=== PATIENT | male | born 1990 | race African-American/Black ===

== ENCOUNTER 2024-02-09 16:05 | Emergency (ER) | payer OTHER, SELFPAY ==
[2024-02-09 16:09] VITALS: BP 130/100; PULSE 158; TEMP 37.1; O2SAT 98; BMI 21.3
[2024-02-09 16:15] VITALS: BP 130/90
--- NOTE | 2024-02-09 16:21 | ED_ITS ---
HPI - Medical Clearance General Chief complaint: Medical Clearance Stated complaint: [facility]-MEDICAL CLEARANCE Time Seen by Provider: 02/09/24 16:07 Source: patient Mode of arrival: walk-in Limitations: no limitations History of Present Illness HPI Narrative: 33-year-old male presents for medical clearance for alcohol rehab. He was taking an Uber from [place] to a nearby alcohol treatment center and on the way that they stopped for gas and he bought a beer and drank it in the car. When he arrived at the alcohol treatment center he was found to have an alcohol level of 0.34. He does not seem to have any physical complaints. He smokes marijuana but denies any other drug use. Related Information Home Medications ?Medication ?Instructions ?Recorded ?Confirmed quetiapine 100 mg tablet (Seroquel) 100 mg PO DAILY 02/09/24 02/09/24 trazodone 100 mg tablet 100 mg PO DAILY 02/09/24 02/09/24 Allergies Allergy/AdvReac Type Severity Reaction Status Date / Time No Known Drug Allergies Allergy Verified 02/09/24 16:13 Review of Systems ROS Narrative A ten point review of systems is negative except as noted above. Exam Narrative Exam Narrative: Nurses note and vital signs reviewed and patient is not hypoxic. General: The patient appears well and in no apparent distress. Patient is resting comfortably on cart. Skin: Warm, dry, no pallor noted. There is no rash noted. Head: Normocephalic, atraumatic Eye: Normal conjunctiva, no drainage Ears, Nose, Mouth, and Throat: oral mucosa is moist. Nares patent. Cardiovascular: Regular Rate and Rhythm Respiratory: Patient is in no distress, no accessory muscle use, lungs are clear to auscultation, no wheezing, rales or rhonchi Back: non-tender GI: Soft and nontender Musculoskeletal: The patient has no evidence of calf tenderness, no pitting edema, symmetrical pulses noted bilaterally Neurological: A&O, normal speech Psychiatric: Cooperative Constitutional Vital Signs, click to edit/add: Last Vital Signs Temp 98.8 F 02/09/24 16:09 Pulse 80 02/09/24 17:12 Resp 18 02/09/24 16:09 BP 130/90 02/09/24 16:22 Pulse Ox 98 02/09/24 17:12 O2 Del Method Room Air 02/09/24 16:09 Course Vital Signs Vital signs: Vital Signs Temperature 98.8 F 02/09/24 16:09 Pulse Rate 158 H 02/09/24 16:09 Respiratory Rate 18 02/09/24 16:09 Blood Pressure 130/100 H 02/09/24 16:09 Pulse Oximetry 98 02/09/24 16:09 Oxygen Delivery Method Room Air 02/09/24 16:09 Temperature 98.8 F 02/09/24 16:09 Pulse Rate 80 02/09/24 17:12 Respiratory Rate 18 02/09/24 16:09 Blood Pressure 130/90 02/09/24 16:22 Pulse Oximetry 98 02/09/24 17:12 Oxygen Delivery Method Room Air 02/09/24 16:09 MDM - Medical Clearance MDM Narrative Medical decision making narrative: The patient was given IV fluids. Blood work nonspecific except for elevated alcohol level. At times he would be tachycardic especially when sitting up and talking but when he laid down and relax his heart rate came back down to normal. He is medically cleared and discharged. Differential Diagnosis Differential diagnosis: Likely other (Alcohol intoxication, alcohol abuse) Lab Data Attestation: I reviewed the patient's lab results. Labs: Lab Results 02/09/24 Range/Units 16:35 WBC 6.1 (4.0-11.0) 10^3/uL RBC 5.42 (4.70-6.10) 10^6/uL Hgb 15.4 (14.0-18.0) g/dL Hct 45.8 (42.0-54.0) % MCV 84.5 (80.0-94.0) fL MCH 28.4 (25.9-34.0) pg MCHC 33.6 (29.9-35.2) g/dL RDW 14.5 (11.0-15.0) % Plt Count 284 (150-450) 10^3/uL MPV 9.3 L (9.5-13.5) fL Neut % (Auto) 45.5 (43.0-75.0) % Lymph % (Auto) 41.7 (20.5-60.0) % [place] % (Auto) 10.2 (1.7-12.0) % Eos % (Auto) 1.7 (0.9-7.0) % Baso % (Auto) 0.7 (0.2-2.0) % Neut # (Auto) 2.8 (1.4-6.5) 10^3/uL Lymph # (Auto) 2.5 (1.2-3.8) 10^3/uL [place] # (Auto) 0.6 (0.3-0.8) 10^3/uL Eos # (Auto) 0.1 (0.0-0.7) 10^3/uL Baso # (Auto) 0.0 (0.0-0.1) 10^3/uL Abs Immat Gran (auto) 0.01 (0.00-0.03) 10^3/uL Imm/Tot Granulo (auto) 0.2 (0.0-0.5) % Sodium 141 (136-145) mmol/L Potassium 3.7 (3.5-5.1) mmol/L Chloride 101 (98-107) mmol/L Carbon Dioxide 24.9 (21.0-32.0) mmol/L Anion Gap 18.8 BUN 7.0 (7.0-18.0) mg/dL Creatinine 0.94 (0.70-1.30) mg/dL Est GFR ( Amer) >60 (>=60) Est GFR (Non-Af Amer) >60 (>=60) BUN/Creatinine Ratio 7.4 Glucose 139 H (74-106) mg/dL Calcium 9.4 (8.5-10.1) mg/dL Ethanol Quant 276 mg/dL ECG Data Attestation: I personally reviewed and interpreted this ECG as follows: (EKG on my interpretation shows sinus tachycardia.) Discharge Plan Discharge Stand Alone Forms: Portal Instructions Chief Complaint: Medical Clearance Clinical Impression: Acute alcohol intoxication Patient Disposition: Home, Self-Care Time of Disposition Decision: 18:19 Condition: Good Mode of Transportation: Private Vehicle Prescriptions / Home Meds: No Action quetiapine [Seroquel] 100 mg tablet 100 mg PO DAILY trazodone 100 mg tablet 100 mg PO DAILY Print Language: Martiniquais Instructions: Alcohol Intoxication (ED), Abuse of Alcohol (ED), Alcohol Withdrawal (ED) Referrals: Physician,Non-Staff, MD [Primary Care Provider] - 1 week
[2024-02-09 16:22] VITALS: BP 130/90; O2SAT 138
--- NOTE | 2024-02-09 16:28 | ECG_ITS ---
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
[2024-02-09] MEDS: 0.9 % SODIUM CHLORIDE 1,000 ML 1000 ML IV (16:38)
[2024-02-09 16:52] LABS: Basophils Percent Auto 0.7 % (0.2-2.0); Eosinophils Absolute Auto 0.1 10^3/uL (0.0-0.7); Eosinophils Percent Auto 1.7 % (0.9-7.0); Hematocrit 45.8 % (42.0-54.0); Hemoglobin 15.4 g/dL (14.0-18.0); Immature Granulocytes Abs Auto 0.01 10^3/uL (0.00-0.03); Immature Granulocytes Pct Auto 0.2 % (0.0-0.5); Lymphocytes Absolute Auto 2.5 10^3/uL (1.2-3.8); Lymphocytes Percent Auto 41.7 % (20.5-60.0); Mean Corpuscular HGB Conc 33.6 g/dL (29.9-35.2); Mean Corpuscular Hemoglobin 28.4 pg (25.9-34.0); Mean Corpuscular Volume 84.5 fL (80.0-94.0); Mean Platelet Volume 9.3 fL (9.5-13.5); Monocytes Absolute Auto 0.6 10^3/uL (0.3-0.8); Monocytes Percent Auto 10.2 % (1.7-12.0); Neutrophils Absolute Auto 2.8 10^3/uL (1.4-6.5); Neutrophils Percent Auto 45.5 % (43.0-75.0); Platelet Count 284 10^3/uL (150-450); Red Blood Count 5.42 10^6/uL (4.70-6.10); Red Cell Distribution Width 14.5 % (11.0-15.0); White Blood Count 6.1 10^3/uL (4.0-11.0)
[2024-02-09 17:04] LABS: Anion Gap 18.8; BUN Creatinine Ratio 7.4; Calcium 9.4 mg/dL (8.5-10.1); Carbon Dioxide 24.9 mmol/L (21.0-32.0); Chloride 101 mmol/L (98-107); Estimated GFR (African America >60 (>=60); Estimated GFR (Non-African Ame >60 (>=60); Ethanol 276 mg/dL; Glucose 139 mg/dL (74-106); Potassium 3.7 mmol/L (3.5-5.1); Sodium 141 mmol/L (136-145)
[2024-02-09 17:12] VITALS: PULSE 80; O2SAT 98
== END 2024-02-09 18:39 | disposition home or self-care (01) ==
PROVIDERS: Emergency Provider Emergency Medicine
DX: F10.129 Alcohol abuse with intoxication, unspecified (principal); F12.90 Cannabis use, unspecified, uncomplicated; Y90.8 Blood alcohol level of 240 mg/100 ml or more
CPT/HCPCS: 36415; 80048; 80320; 85025; 93005; 99284